=== PATIENT | male | born 1965 | race African-American/Black ===

== ENCOUNTER 2021-10-12 12:55 | Emergency (ER) | payer OTHER ==
[2021-10-12 13:01] VITALS: TEMP 98; BMI 49.9
[2021-10-12] MEDS ORDERED: KETOROLAC TROMETHAMINE 30 MG/1 ML VIAL IM ONE (13:32)
[2021-10-12 13:35] VITALS: BP 147/73; PULSE 85
[2021-10-12] MEDS ORDERED: KETOROLAC TROMETHAMINE 30 MG/1 ML VIAL ONE (13:37)
== END 2021-10-12 14:00 | disposition home or self-care (01) ==
LOC: FER 12:55
PROC: 3E0233Z Introduction of Anti-inflammatory into Muscle, Percutaneous Approach (ICD-10-PCS; principal; 2021-10-12)
DX: M25.562 Pain in left knee (principal)
CPT/HCPCS: 73562-TC-LT-FY; 99284-25

== ENCOUNTER 2021-11-02 18:45 | Emergency (ER) | payer OTHER ==
[2021-11-02 18:57] VITALS: BP 139/86; PULSE 79; RESP 20; TEMP 98.5; BMI 48.2
[2021-11-02 19:54] LABS: HEMATOCRIT 39.8 % (35.4-49); MCH 31.5 pg (25.7-33.7); MCHC 35.2 g/dl (32.0-35.9); MEAN CELL VOLUME 89.4 fl (80-96); MEAN PLT VOLUME 8.2 fl (7.5-11.1); PLATELET COUNT 282.9 10^3/uL (134-434); RBC 4.45 10^6/uL (4.00-5.60); RDW 14.6 % (11.9-15.9)
[2021-11-02 20:08] LABS: PLATELET ESTIMATE ADEQUATE
[2021-11-02 20:14] LABS: ALBUMIN 3.6 g/dl (3.4-5.0); BILIRUBIN,TOTAL 0.4 mg/dl (0.2-1); CREATININE 0.9 mg/dl (0.55-1.3); TOT PROT 6.8 g/dl (6.4-8.2)
== END 2021-11-02 20:52 | disposition home or self-care (01) ==
LOC: FER 18:45
DX: G56.10 Other lesions of median nerve, unspecified upper limb (principal)
CPT/HCPCS: 36415; 80053; 85027; 93005; 99284-25

== ENCOUNTER 2022-05-22 18:15 | Emergency (ER) | payer OTHER ==
[2022-05-22 18:35] VITALS: BP 140/93; PULSE 82; RESP 20; TEMP 97.7; BMI 50.0
[2022-05-22] MEDS ORDERED: PHENAZOPYRIDINE HCL 100 MG TABLET (FP) PO ONE (19:44)
[2022-05-22] MEDS ORDERED: PHENAZOPYRIDINE HCL 100 MG TABLET (FP) ONE (19:49)
== END 2022-05-22 19:55 | disposition home or self-care (01) ==
LOC: FER 18:15
DX: R30.0 Dysuria (principal)
CPT/HCPCS: 36415; 81003; 81015; 87077; 87086; 87491; 87591; 99283-25

== ENCOUNTER 2022-12-05 17:34 | Emergency (ER) | payer OTHER ==
[2022-12-05 17:45] VITALS: BP 156/102; PULSE 99; RESP 18; TEMP 98.1; BMI 52.4
[2022-12-05] MEDS ORDERED: KETOROLAC TROMETHAMINE 30 MG/1 ML VIAL IM ONE (17:50)
[2022-12-05] MEDS ORDERED: LIDOCAINE 5% TOPICAL PATCH TP ONE (17:50)
[2022-12-05] MEDS ORDERED: METHOCARBAMOL 500 MG TABLET PO ONE (17:50)
[2022-12-05] MEDS ORDERED: KETOROLAC TROMETHAMINE 30 MG/1 ML VIAL ONE (18:04)
[2022-12-05] MEDS ORDERED: LIDOCAINE 5% TOPICAL PATCH ONE (18:04)
[2022-12-05] MEDS ORDERED: METHOCARBAMOL 500 MG TABLET ONE (18:04)
[2022-12-05] MEDS ORDERED: LIDOCAINE PATCH REMOVAL MC ONE (22:00)
== END 2022-12-05 19:06 | disposition home or self-care (01) ==
LOC: FER 17:34
PROC: 3E0233Z Introduction of Anti-inflammatory into Muscle, Percutaneous Approach (ICD-10-PCS; principal; 2022-12-05)
DX: M62.830 Muscle spasm of back (principal); M54.9 Dorsalgia, unspecified
CPT/HCPCS: 99284-25

== ENCOUNTER 2023-04-13 12:20 | Emergency (ER) | payer OTHER ==
[2023-04-13 12:38] VITALS: BP 140/78; PULSE 98; RESP 18; TEMP 98.5; BMI 52.4
== END 2023-04-13 13:20 | disposition home or self-care (01) ==
LOC: FER 12:20
DX: M54.6 Pain in thoracic spine (principal)
CPT/HCPCS: 99283-25

== ENCOUNTER 2025-02-05 12:34 | Emergency (ER) | payer OTHER ==
[2025-02-05 12:50] VITALS: BP 150/90; PULSE 100; RESP 20; TEMP 97.7; BMI 52.0
[2025-02-05] MEDS ORDERED: ACETAMINOPHEN 500 MG TABLET (FP) ONE (14:37)
[2025-02-05] MEDS ORDERED: IBUPROFEN 400 MG TABLET (FP) PO ONE (14:37)
[2025-02-05] MEDS: IBUPROFEN 400 MG TABLET (FP) PO ONE (14:40)
[2025-02-05] MEDS: ACETAMINOPHEN 500 MG TABLET (FP) PO ONE (14:40)
== END 2025-02-05 15:00 | disposition home or self-care (01) ==
LOC: FER 12:34
DX: S89.92XA Unspecified injury of left lower leg, initial encounter (principal); X50.1XXA Overexertion from prolonged static or awkward postures, initial encounter
CPT/HCPCS: 73562-TC-RT-FY; 99283-25